=== PATIENT | female | born 1960 | race Caucasian/White ===

== ENCOUNTER 2019-08-22 18:33 | Emergency (ER) | payer MEDICARE ==
[~2019-08-22] VITALS: Ht 157.5 cm; Wt 85.3 kg
[~2019-08-22 18:33] MED LIST: ATIVAN1 MG PO; COUMADIN1 MG PO; DEMEROL PO; PHENERGAN PO; SOMA250 MG PO; TOPROL XL50 MG PO
[2019-08-22 19:15] LABS: BASOPHILS # (AUTO) 0.1 (0.0-0.1); BASOPHILS % 0.7 % (0.0-1.0); EOSINOPHILS # (AUTO) 0.2 (0.0-0.4); EOSINOPHILS % 2.4 % (0.0-6.0); HEMATOCRIT 39.5 % (34.2-44.1); HEMOGLOBIN 13.5 g/dL (12.0-16.0); LYMPHOCYTES # (AUTO) 1.6 (1.0-3.2); LYMPHOCYTES % 23.1 % (18.0-39.1); MEAN CORPUSCULAR HEMOGLOBIN 31.7 pg (28-32); MEAN CORPUSCULAR HGB CONC 34.2 g/dL (31-35); MEAN CORPUSCULAR VOLUME 92.7 fL (81-99); MONOCYTES # (AUTO) 0.4 (0.2-0.8); MONOCYTES % 6.3 % (4.4-11.3); NEUTROPHILS # (AUTO) 4.6 (2.1-6.9); NEUTROPHILS % 67.4 % (38.7-80.0); PLATELET COUNT 251 x10e3/uL (140-360); RED BLOOD COUNT 4.26 x10e6/uL (3.6-5.1); RED CELL DISTRIBUTION WIDTH 12.6 % (11.7-14.4)
[2019-08-22 19:21] LABS: INR 1.46; PROTHROMBIN TIME 18.3 seconds (11.9-14.5)
[2019-08-22 19:22] LABS: PARTIAL THROMBOPLASTIN TIME 31.6 seconds (23.8-35.5)
[2019-08-22] MEDS ORDERED: LORAZEPAM 1 MG TAB PO NR (19:30)
[2019-08-22 21:12] VITALS: BP 129/61
== END 2019-08-22 21:16 | disposition home or self-care (01) ==
LOC: ER 18:33
DX: M79.661 Pain in right lower leg (principal); S86.111A Strain of other muscle(s) and tendon(s) of posterior muscle group at lower leg level, right leg, initial encounter; F41.9 Anxiety disorder, unspecified; M54.9 Dorsalgia, unspecified; G89.29 Other chronic pain; Z85.118 Personal history of other malignant neoplasm of bronchus and lung
CPT/HCPCS: 36415; 85025; 85610; 85730; 93971; 99283

== ENCOUNTER 2020-05-10 13:40 | Emergency (ER) | payer MEDICARE ==
[~2020-05-10] VITALS: Ht 157.5 cm; Wt 85.3 kg
--- NOTE | 2020-05-10 15:19 | Diagnostic Imaging Report ---
EXAMINATION: CHEST SINGLE (PORTABLE) INDICATION: Chest pain COMPARISON: Report of chest CT of 04/15/2017 (images not available for comparison). FINDINGS: LINES/TUBES:None LUNGS:The lungs are well-inflated. No focal consolidation or pulmonary edema. Nodules seen on prior chest CT are beyond the resolution of this radiograph. PLEURA:No pleural effusion or pneumothorax. MEDIASTINUM:The cardiomediastinal silhouette appears normal in size and shape. BONES/SOFT TISSUES:No acute osseous injury. Partially visualized cervical spine fusion hardware. ABDOMEN:No free air under the diaphragm. IMPRESSION: No focal pneumonia or pulmonary edema. Signed by: Yojana Gonzalez MD on 05/10/2020 3:15 PM
--- OUTSIDE RECORDS SUMMARY | 2020-05-10 15:22 | XMS REPORT | Continuity of Care Document ---
Author Author [facility] t Organization [facility] Address [address] [place] [address] Phone Unavailable Care Team Providers Care Statistician Applied Name Role Phone SHERRELL MARK MD PCP Jimmie WESTON Attphys Unavailable Mihai SIMPSON Attphys Unavailable Payers Payer Name Policy Type Policy Number Effective Date Expiration Date [place] Medicare Advantage [id number] 2018 00:00:00 [facility] [employer] Medicare Replacement [id number] 2016 00:00:00 [facility] Problems Condition Name Condition Details Condition Category Status Onset Date Resolution Date Last Treatment Date Treating Clinician Comments Source Chest pain Chest pain Problem Active [facility] Allergies, Adverse Reactions, Alerts Allergy Name Allergy Type Status Severity Reaction(s) Onset Date Inacti ve Date Treating Clinician Comments Source Tramadol Allergy to Substance Active 2017-04-15 00:00:00 [facility] Ketorolac Allergy to Substance Active 2017-04-15 00:00:00 [facility] ZOFRAN Allergy to Substance Active Mild 2016-03-14 00:00:00 [facility] Morphine Allergy to Substance Active 2009-11-06 00:00:00 [facility] Codeine Allergy to Substance Active 2009-11-06 00:00:00 [facility] Pentazocine Allergy to Substance Active 2009-11-06 00:00:00 [facility] Metoclopramide Allergy to Substance Active 2009-11-06 00:00 :00 [facility] NSAIDS (Non-Steroidal Anti-Inflamma Allergy to Substance Active 2009-11-02 00:00:00 [facility] Ondansetron Allergy to Substance Active 2009-11-02 00:00:00 [facility] Medications Ordered Medication Name Filled Medication Name Start Date Stop Da te Current Medication? Ordering Clinician Indication Dosage Frequency Signature (SIG) Comments Components Source Carisoprodol (Soma) 250 Mg Tab Carisoprodol (Soma) 250 Mg Tab Yes 1 Twice A Day as needed for Pain [facility] Demerol Demerol Yes 50 Twice A Day [facility] Lorazepam (Ativan) 1 Mg Tablet Lorazepam (Ativan) 1 Mg Tablet Yes 1 Twice A Day as needed for Anxiety [facility] Metoprolol Succinate (Toprol Xl) 50 Mg Tab.er.24h Meto prolol Succinate (Toprol Xl) 50 Mg Tab.er.24h Yes 100 Daily [facility] Phenergan Phenergan Yes 25 Twice A Day [facility] Warfarin Sodium (Coumadin) 1 Mg Tablet Warfarin Sodium (Coumadin ) 1 Mg Tablet Yes 3 Today At 5:00PM [facility] Procedures This patient has no known procedures. Encounters Start Date/Time End Date/Time Encounter Type Admission Type [facility] Care Department Encounter ID Source 2019-10-18 13:41:00 2019-10-18 15:06:00 Departed Emergency Room 1 MONISHA SIMPSON [facility] [id number] [facility] 2019-08-22 18:33:00 2019-08-22 21:16:00 Departed Emergency Room [facility] [id number] [facility] Results Test Description Test Time Test Comments Results Result Comments Source CHEST SINGLE (PORTABLE) 2020-05-10 15:14:00 [place] [address] Patient Name: LEIF DONOVAN MR #: [id number] : 1960 Age/Sex: 59/F Req #: [id number] Adm Physician: Ordered by: CHINMAY WESTON MD Report #: [id number] Location: ER Room/Bed: Procedure: [id number] DX/CHEST SINGLE (PORTABLE) Exam Date: 05/10/20 Exam Time: 1450 REPORT STATUS: Signed EXAMINATION: CHEST SINGLE (PORTABLE) INDICATION: Chest pain COMPARISON: Report of chest CT of 04/15/2017 (images not available for comparison). FINDINGS: LINES/TUBES:None LUNGS:The lungs are well-inflated. No focal consolidation or pulmonary edema. Nodules seen on prior chest CT are beyond the resolution of this radiograph. PLEURA:No pleural effusion or pneumothorax. MEDIASTINUM:The cardiomediastinal silhouette appears normal in size and shape. BONES/SOFT TISSUES:No acute osseous injury. Partially visualized cervical spine fusion hardware. ABDOMEN:No free air under the diaphragm. IMPRESSION: No focal pneumonia or pulmonary edema. Signed by: Elaine Tejeda MD on 05/10/2020 3:15 PM Dictated By: ELAINE TEJEDA MD 14 Transcribed By: HILLARY on 05/10/201514 COPY TO: CHINMAY WESTON MD [address] RT - [facility] 2019-10-18 14:27:00 [place] [address] Patient Name: LEIF DONOVAN MR #: [id number] : 1960 Age/Sex: 58/F Req #: [id number] Adm Physician: Ordered by: MONISHA SIMPSON MD Report #: [id number] Location: [facility] Room/Bed: Procedure: [id number] [facility]/FOOT 2VIEW RT - [facility] Exam Date: Exam Time: REPORT STATUS: Signed EXAMINATION: FOOT 2VIEW RT - [facility] INDICATION: Trauma COMPARISON: None FINDINGS: Acute minimally displaced fracture of the medial aspect of the fourth proximal phalanx base with intra-articular extension. Subtle cortical irregularity along the medial aspect of the base of the second proximal phalanx. Remote post traumatic versus postoperative deformity of the fifth toe. IMPRESSION: Acute minimally displaced fracture of the medial aspect of the base of the fourth proximal phalanx. Cortical irregularity along the medial aspect of the base of the second proximal phalanx. If the patient has symptoms localizing to this area, this may represent an acute nondisplaced fracture. Signed by: Elaine Tejeda MD on 10/18/2019 2:31 PM Dictated By: ELAINE ETJEDA MD 1431 Transcribed By: HILLARY on 10/18/19 1431 COPY TO: MONISHA SIMPSON MD Prothrombin Time 2019-08-22 19:23:00 Test Item Prothrombin Time (test code = 5902-2) 18.3 11.9-14.5 H [facility] International Ratio 2019-08-22 19:23:00* Test Item Value Reference Range Interpretation Comments Prothromb Time International Ratio (test code = 6301-6) 1.46 Oral Anticoagulant Therapy INR Values:1. Low Intensity Therapy 1.5 - 2.02 . Moderate Intensity Therapy 2.0 - 3.03. High Intensity Therapy(1) 2.5 - 3. 54. High Intensity Therapy(2) 3.0 - 4.05. Panic Value INR > 5.0 [facility] Partial Thromboplast Time 2019-08-22 19:23:00* Test Item Value Reference Range Interpretation Comments Activated Partial Thromboplast Time (test code = 48422-3) 31.6 23.8-35.5 [facility]Prothrombin [id number] 19:23:00* Test Item Value Reference Range Interpretation Comments Prothrombin Time (test code = 5902-2) 18.3 11.9-14.5 H [facility]romb Time International Ratio 2019-08-22 19:23:00* Test Item Value Reference Range Interpretation Comments Prothromb Time International Ratio (test code = 6301-6) 1.46 Oral Anticoagulant Therapy INR Values:1. Low Intensity Therapy 1.5 - 2.02 . Moderate Intensity Therapy 2.0 - 3.03. High Intensity Therapy(1) 2.5 - 3. 54. High Intensity Therapy(2) 3.0 - 4.05. Panic Value INR > 5.0 [facility] Partial Thromboplast Time 2019-08-22 19:23:00* Test Item Value Reference Range Interpretation Comments Activated Partial Thromboplast Time (test code = 38559-3) 31.6 23.8-35.5 [facility] HospitalWhite Blood [id number] 19:16:00* Test Item Value Reference Range Interpretation Comments White Blood Count (test code = 6690-2) 6.80 4.8-10.8 [facility] Blood [id number] 19:16:00* Test Item Value Reference Range Interpretation Comments Red Blood Count (test code = 789-8) 4.26 3.6-5.1 [facility] HospitalHemoglobin2019-11-17 19:16:00* Test Item Value Reference Range Interpretation Comments Hemoglobin (test code = 86009-5) 13.5 12.0-16.0 [facility] HospitalHematocrit2019-11-17 19:16:00* Test Item Value Reference Range Interpretation Comments Hematocrit (test code = 4544-3) 39.5 34.2-44.1 [facility] HospitalMean Corpuscular [id number] 19:16:00* Test Item Value Reference Range Interpretation Comments Mean Corpuscular Volume (test code = 787-2) 92.7 81-99 [facility] HospitalMean Corpuscular Ppubgyuuoy4380-00-08 19:16:00* Test Item Value Reference Range Interpretation Comments Mean Corpuscular Hemoglobin (test code = 785-6) 31.7 28-32 [facility] HospitalMean Corpuscular Hemoglobin Concent 2019-08-22 19:16:00* Test Item Value Reference Range Interpretation Comments Mean Corpuscular Hemoglobin Concent (test code = 786-4) 34.2 31-35 [facility] HospitalRed Cell Distribution [id number] 19:16:00* Test Item Value Reference Range Interpretation Comments Red Cell Distribution Width (test code = 02627-9) 12.6 11.7 -14.4 [facility] HospitalPlatelet [id number] 19:16:00* Test Item Value Reference Range Interpretation Comments Platelet Count (test code = 777-3) 251 140-360 [facility] HospitalNeutrophils (%) (Auto)2019-08-22 19:16:00 * Test Item Value Reference Range Interpretation Comments Neutrophils (%) (Auto) (test code = 18418-1) 67.4 38.7-80.0 [facility] HospitalLymphocytes (%) (Auto)2019-08-22 19:16:00 * Test Item Value Reference Range Interpretation Comments Lymphocytes (%) (Auto) (test code = 736-9) 23.1 18.0-39.1 [facility] HospitalMonocytes (%) (Auto)2019-08-22 19:16:00* Test Item Value Reference Range Interpretation Comments Monocytes (%) (Auto) (test code = 5905-5) 6.3 4.4-11.3 [facility] HospitalEosinophils (%) (Auto)2019-08-22 19:16:00 * Test Item Value Reference Range Interpretation Comments Eosinophils (%) (Auto) (test code = 713-8) 2.4 0.0-6.0 [facility] HospitalBasophils (%) (Auto)2019-08-22 19:16:00* Test Item Value Reference Range Interpretation Comments Basophils (%) (Auto) (test code = 706-2) 0.7 0.0-1.0 [facility] HospitalIM GRANULOCYTES %2019-08-22 19:16:00* Test Item Value Reference Range Interpretation Comments IM GRANULOCYTES % (test code = IM GRANULOCYTES %) 0.1 0.0- 1.0 [facility] HospitalNeutrophils # (Auto)2019-08-22 19:16:00* Test Item Value Reference Range Interpretation Comments Neutrophils # (Auto) (test code = 751-8) 4.6 2.1-6.9 [facility] HospitalLymphocytes # (Auto)2019-08-22 19:16:00* Test Item Value Reference Range Interpretation Comments Lymphocytes # (Auto) (test code = 19116-5) 1.6 1.0-3.2 [facility] HospitalMonocytes # (Auto)2019-08-22 19:16:00* Test Item Value Reference Range Interpretation Comments Monocytes # (Auto) (test code = 742-7) 0.4 0.2-0.8 [facility] HospitalEosinophils # (Auto)2019-08-22 19:16:00* Test Item Value Reference Range Interpretation Comments Eosinophils # (Auto) (test code = 711-2) 0.2 0.0-0.4 [facility] HospitalBasophils # (Auto)2019-08-22 19:16:00* Test Item Value Reference Range Interpretation Comments Basophils # (Auto) (test code = 704-7) 0.1 0.0-0.1 [facility] HospitalAbsolute Immature Granulocyte (auto 2019-08-22 19:16:00* Test Item Value Reference Range Interpretation Comments Absolute Immature Granulocyte (auto (britni t code = Absolute Immature Granulocyte (auto) 0.01 0-0.1 [facility] HospitalWhite Blood [id number] 19:16:00* Test Item Value Reference Range Interpretation Comments White Blood Count (test code = 6690-2) 6.80 4.8-10.8 [facility] HospitalRed Blood [id number] 19:16:00* Test Item Value Reference Range Interpretation Comments Red Blood Count (test code = 789-8) 4.26 3.6-5.1 [facility] HospitalHemoglobin2019-11-17 19:16:00* Test Item Value Reference Range Interpretation Comments Hemoglobin (test code = 36431-7) 13.5 12.0-16.0 [facility] HospitalHematocrit2019-11-17 19:16:00* Test Item Value Reference Range Interpretation Comments Hematocrit (test code = 4544-3) 39.5 34.2-44.1 [facility] HospitalMean Corpuscular Egefec2782-80-18 19:16:00* Test Item Value Reference Range Interpretation Comments Mean Corpuscular Volume (test code = 787-2) 92.7 81-99 [facility] HospitalMean Corpuscular [id number] 19:16:00* Test Item Value Reference Range Interpretation Comments Mean Corpuscular Hemoglobin (test code = 785-6) 31.7 28-32 [facility] HospitalMean Corpuscular Hemoglobin Concent 2019-08-22 19:16:00* Test Item Value Reference Range Interpretation Comments Mean Corpuscular Hemoglobin Concent (test code = 786-4) 34.2 31-35 [facility] HospitalRed Cell Distribution [id number] 19:16:00* Test Item Value Reference Range Interpretation Comments Red Cell Distribution Width (test code = 11444-3) 12.6 11.7 -14.4 [facility] HospitalPlatelet [id number] 19:16:00* Test Item Value Reference Range Interpretation Comments Platelet Count (test code = 777-3) 251 140-360 [facility] HospitalNeutrophils (%) (Auto)2019-08-22 19:16:00 * Test Item Value Reference Range Interpretation Comments Neutrophils (%) (Auto) (test code = 42810-7) 67.4 38.7-80.0 [facility] HospitalLymphocytes (%) (Auto)2019-08-22 19:16:00 * Test Item Value Reference Range Interpretation Comments Lymphocytes (%) (Auto) (test code = 736-9) 23.1 18.0-39.1 [facility] HospitalMonocytes (%) (Auto)2019-08-22 19:16:00* Test Item Value Reference Range Interpretation Comments Monocytes (%) (Auto) (test code = 5905-5) 6.3 4.4-11.3 [facility] HospitalEosinophils (%) (Auto)2019-08-22 19:16:00 * Test Item Value Reference Range Interpretation Comments Eosinophils (%) (Auto) (test code = 713-8) 2.4 0.0-6.0 [facility] HospitalBasophils (%) (Auto)2019-08-22 19:16:00* Test Item Value Reference Range Interpretation Comments Basophils (%) (Auto) (test code = 706-2) 0.7 0.0-1.0 [facility] HospitalIM GRANULOCYTES %2019-08-22 19:16:00* Test Item Value Reference Range Interpretation Comments IM GRANULOCYTES % (test code = IM GRANULOCYTES %) 0.1 0.0- 1.0 [facility] HospitalNeutrophils # (Auto)2019-08-22 19:16:00* Test Item Value Reference Range Interpretation Comments Neutrophils # (Auto) (test code = 751-8) 4.6 2.1-6.9 [facility] HospitalLymphocytes # (Auto)2019-08-22 19:16:00* Test Item Value Reference Range Interpretation Comments Lymphocytes # (Auto) (test code = 66804-5) 1.6 1.0-3.2 [facility] HospitalMonocytes # (Auto)2019-08-22 19:16:00* Test Item Value Reference Range Interpretation Comments Monocytes # (Auto) (test code = 742-7) 0.4 0.2-0.8 [facility] HospitalEosinophils # (Auto)2019-08-22 19:16:00* Test Item Value Reference Range Interpretation Comments Eosinophils # (Auto) (test code = 711-2) 0.2 0.0-0.4 [facility] HospitalBasophils # (Auto)2019-08-22 19:16:00* Test Item Value Reference Range Interpretation Comments Basophils # (Auto) (test code = 704-7) 0.1 0.0-0.1 [facility] HospitalAbsolute Immature Granulocyte (auto 2019-08-22 19:16:00* Test Item Value Reference Range Interpretation Comments Absolute Immature Granulocyte (auto (britni t code = Absolute Immature Granulocyte (auto) 0.01 0-0.1 [facility]
[2020-05-10] MEDS ORDERED: LORAZEPAM INJ 2 MG/ML VIAL IV ONE (15:30)
[2020-05-10 16:02] LABS: BASOPHILS % 0.5 % (0.0-1.0); EOSINOPHILS # (AUTO) 0.1 (0.0-0.4); EOSINOPHILS % 1.8 % (0.0-6.0); HEMATOCRIT 41.1 % (34.2-44.1); HEMOGLOBIN 13.7 g/dL (12.0-16.0); LYMPHOCYTES # (AUTO) 1.4 (1.0-3.2); LYMPHOCYTES % 23.4 % (18.0-39.1); MEAN CORPUSCULAR HEMOGLOBIN 30.2 pg (28-32); MEAN CORPUSCULAR HGB CONC 33.3 g/dL (31-35); MEAN CORPUSCULAR VOLUME 90.5 fL (81-99); MONOCYTES # (AUTO) 0.4 (0.2-0.8); NEUTROPHILS # (AUTO) 4.1 (2.1-6.9); NEUTROPHILS % 68.1 % (38.7-80.0); PLATELET COUNT 228 x10e3/uL (140-360); RED BLOOD COUNT 4.54 x10e6/uL (3.6-5.1); RED CELL DISTRIBUTION WIDTH 12.8 % (11.7-14.4)
[2020-05-10 16:12] LABS: INR 2.29; PARTIAL THROMBOPLASTIN TIME 40.1 seconds (23.8-35.5); PROTHROMBIN TIME 26.7 seconds (11.9-14.5)
[2020-05-10 16:22] LABS: ALANINE AMINOTRANSFERASE 31 IU/L (0-55); ALBUMIN 3.9 g/dL (3.5-5.0); ALKALINE PHOSPHATASE 68 IU/L (40-150); ANION GAP 13.3 mmol/L (8-16); BLOOD UREA NITROGEN 9 mg/dL (7-26); BUN/CREATININE RATIO 10 (6-25); CALCIUM 9.1 mg/dL (8.4-10.2); CARBON DIOXIDE 24 mmol/L (22-29); CHLORIDE 107 mmol/L (98-107); CREATINE KINASE 129 IU/L (29-168); EST GLOMERULAR FILTRATION RATE > 60 ML/MIN (60-); GLUCOSE 97 mg/dL (74-118); MAGNESIUM 1.9 MG/DL (1.3-2.1); POTASSIUM 3.3 mmol/L (3.5-5.1); SODIUM 141 mmol/L (136-145)
[2020-05-10 16:41] LABS: THYROID STIMULATING HORMONE 3.941 uIU/mL (0.350-4.940)
--- NOTE | 2020-05-10 16:47 | Emergency Department Note ---
History of Present Illnes History of Present Illness Chief Complaint: Chest Pain History of Present Illness This is a 59 year old female CHEST PAIN WITH PVC AND PAIN WITH PVC'S. 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 Any updates have been documented here. Past Medical History Recent Fever: No Clinical Suspicion of Infectio: No New/Unexplained Change in Ment: No Past Medical History: Cancer, Anxiety, DVT/PE, Chronic Back Pain Other Medical History: IBS CHRONIC CERVICAL SPINE PAIN LUNG CANCER PE X2 MITRAL VALVE PROLAPSE CHROHNS DISEASE PSORIASIS Past Surgical History: Cholecysctectomy, Appendectomy, Other Surgery: BLADDER SUSPENSION THORACOTOMY LT LUNG ORTHO ON BILATERAL ARMS CERVICAL REPAIR X 2 Social History Smoking Cessation: Never Smoker Alcohol Use: None Any Illegal Drug Use: No TB Exposure/Symptoms: No Physically hurt or threatened: No Family History Family history of heart diseas: No Other Last Tetanus: UTD Review of Systems Review of Systems Constitutional: Reports no symptoms EENTM: Reports no symptoms Cardiovascular: Reports as per HPI Respiratory: Reports no symptoms Gastrointestinal: Reports no symptoms Genitourinary: Reports no symptoms Musculoskeletal: Reports no symptoms Integumentary: Reports no symptoms Neurological: Reports no symptoms Psychological: Reports no symptoms Endocrine: Reports no symptoms Hematological/Lymphatic: Reports no symptoms Physical Exam Related Data Allergies: Coded Allergies: NSAIDS (Non-Steroidal Anti-Inflamma (Verified Allergy, Unknown, 11/02/09) codeine (Verified Allergy, Unknown, 11/06/09) ketorolac (Verified Allergy, Unknown, 04/15/17) metoclopramide (Verified Allergy, Unknown, 11/06/09) morphine (Verified Allergy, Unknown, 11/06/09) ondansetron (Verified Allergy, Unknown, 11/02/09) pentazocine (Verified Allergy, Unknown, 11/06/09) tramadol (Verified Allergy, Unknown, 04/15/17) Uncoded Allergies: ZOFRAN (Allergy, Mild, 03/14/16) Triage Vital Signs Vital Signs Date Time Temp Pulse Resp B/P (MAP) Pulse Ox O2 Delivery O2 Flow Rate FiO2 05/10/20 13:42 97.4 120 20 147/62 99 Room Air Vital signs reviewed: Yes Physical Exam CONSTITUTIONAL Constitutional: Present well-developed, Present well-nourished HENT HENT: Present normocephalic, Present atraumatic, Present oropharynx clear/storm st, Present nose normal HENT L/R: Present left ext ear normal, Present right ext ear normal EYES Eyes: Reports PERRL, Reports conjunctivae normal NECK Neck: Present ROM normal PULMONARY Pulmonary: Present effort normal, Present breath sounds normal CARDIOVASCULAR Cardiovascular: Present regular rhythm, Present heart sounds normal, Present capillary refill normal, Present normal rate, Present other (SOME REPRODUCIBLE TENDERNESS ANTERIOR CW) GASTROINTESTINAL Abdominal: Present soft, Present nontender, Present bowel sounds normal GENITOURINARY Genitourinary: Present exam deferred SKIN Skin: Present warm, Present dry MUSCULOSKELETAL Musculoskeletal: Present ROM normal NEUROLOGICAL Neurological: Present alert, Present oriented x 3, Present no gross motor or sensory deficits PSYCHOLOGICAL Psychological: Present mood/affect normal, Present judgement normal Results Laboratory Result Diagram: 05/10/20 1502 05/10/20 1502 Laboratory Laboratory Tests Test 05/10/20 15:02 White Blood Count 5.98 x10e3/uL (4.8-10.8) Red Blood Count 4.54 x10e6/uL (3.6-5.1) Hemoglobin 13.7 g/dL (12.0-16.0) Hematocrit 41.1 % (34.2-44.1) Mean Corpuscular Volume 90.5 fL (81-99) Mean Corpuscular Hemoglobin 30.2 pg (28-32) Mean Corpuscular Hemoglobin Concent 33.3 g/dL (31-35) Red Cell Distribution Width 12.8 % (11.7-14.4) Platelet Count 228 x10e3/uL (140-360) Neutrophils (%) (Auto) 68.1 % (38.7-80.0) Lymphocytes (%) (Auto) 23.4 % (18.0-39.1) Monocytes (%) (Auto) 6.0 % (4.4-11.3) Eosinophils (%) (Auto) 1.8 % (0.0-6.0) Basophils (%) (Auto) 0.5 % (0.0-1.0) Neutrophils # (Auto) 4.1 (2.1-6.9) Lymphocytes # (Auto) 1.4 (1.0-3.2) Monocytes # (Auto) 0.4 (0.2-0.8) Eosinophils # (Auto) 0.1 (0.0-0.4) Basophils # (Auto) 0.0 (0.0-0.1) Absolute Immature Granulocyte (auto 0.01 x10e3/uL (0-0.1) Prothrombin Time 26.7 seconds (11.9-14.5) Prothromb Time International Ratio 2.29 Activated Partial Thromboplast Time 40.1 seconds (23.8-35.5) D-Dimer Quantitative (PE/DVT) 0.14 ug/mLFEU (0.00-0.45) Sodium Level 141 mmol/L (136-145) Potassium Level 3.3 mmol/L (3.5-5.1) Chloride Level 107 mmol/L (98-107) Carbon Dioxide Level 24 mmol/L (22-29) Anion Gap 13.3 mmol/L (8-16) Blood Urea Nitrogen 9 mg/dL (7-26) Creatinine 0.90 mg/dL (0.57-1.11) Estimat Glomerular Filtration Rate > 60 ML/MIN (60-) BUN/Creatinine Ratio 10 (6-25) Glucose Level 97 mg/dL (74-118) Calcium Level 9.1 mg/dL (8.4-10.2) Magnesium Level 1.9 MG/DL (1.3-2.1) Total Bilirubin 0.4 mg/dL (0.2-1.2) Aspartate Amino Transf (AST/SGOT) 30 IU/L (5-34) Alanine Aminotransferase (ALT/SGPT) 31 IU/L (0-55) Alkaline Phosphatase 68 IU/L (40-150) Creatine Kinase 129 IU/L (29-168) B-Type Natriuretic Peptide 20.0 pg/mL (0-100) Total Protein 7.7 g/dL (6.5-8.1) Albumin 3.9 g/dL (3.5-5.0) Globulin 3.8 g/dL (2.3-3.5) Albumin/Globulin Ratio 1.0 (0.8-2.0) Lab results reviewed: Yes Imaging Imaging results reviewed: Yes Procedures 12 Lead ECG Interpretation ECG Interpretation : ECG: ECG 1 [employer] Consultant: Interpreted by ED physician Date: May 10, 2020 Time: 13:51 Rhythm: sinus rhythm Rate: normal (81) QRS axis: left ST segments normal: Yes T waves normal: Yes Clinical Impression: abnormal ECG Assessment & Plan Medical Decision Making MDM CBC, CHEM, ECG, CARDIACS, D-DIMER, CXR - R/O STEMI/NSTEMI, PULM EMBOLISM, PNEUMONIA Reassessment Reassessment ATYPICAL CP - DC HOME, F/U PCP AND CARDIOLOGY, RTED PRN Assessment & Plan Final Impression: (1) Atypical chest pain Depart Disposition: HOME, SELF-CARE Last Vital Signs Date Time Temp Pulse Resp B/P (MAP) Pulse Ox O2 Delivery O2 Flow Rate FiO2 05/10/20 15:50 65 14 134/92 99 Room Air 05/10/20 13:42 97.4 Home Meds Reported Medications Lorazepam (ATIVAN) 1 Mg Tablet, 1 TAB PO BID PRN for ANXIETY 04/15/17 Warfarin Sodium (COUMADIN) 1 Mg Tablet, 3 MG PO 1700, #7 TAB 04/15/17 Metoprolol Succinate (TOPROL XL) 50 Mg Tab.er.24h, 100 MG PO DAILY, #30 TAB 04/15/17 Carisoprodol (SOMA) 250 Mg Tab, 1 TAB PO BID PRN for PAIN 04/15/17 [Demerol] No Conflict Check, 50 MG PO BID 04/15/17 [Phenergan] No Conflict Check, 25 MG PO BID 04/15/17 Medications in the ED Lorazepam 1 mg ONCE ONCE IV Last administered on 05/10/20at 15:49; Admin Dose 1 MG; Start 05/10/20 at 15:30; Stop 05/10/20 at 15:40; Status DC CHINMAY WESTON MD May 10, 2020 16:47
[2020-05-10 16:57] VITALS: BP 112/79
== END 2020-05-10 17:54 | disposition home or self-care (01) ==
LOC: ER 15:20
DX: R07.89 Other chest pain (principal); R94.31 Abnormal electrocardiogram [ECG] [EKG]; R11.0 Nausea; F41.9 Anxiety disorder, unspecified; M54.9 Dorsalgia, unspecified; G89.29 Other chronic pain; Z85.118 Personal history of other malignant neoplasm of bronchus and lung; Z86.718 Personal history of other venous thrombosis and embolism
CPT/HCPCS: 36415; 71045; 80053; 82550; 82553; 83735; 83880; 84443; 84484; 85025; 85379; 85610; 85730; 93005; 99284; J2060

== ENCOUNTER → 2020-06-22 | Outpatient (CLI) | payer MEDICARE ==
[~2020-06-22] MED LIST changes: +IOPAMIDOL 370 MG/ML 200 ML INFUS..BTL INJ ONE; +SODIUM CHLORIDE 0.9% 50ML 50 ML ONE
[2020-06-22 15:26] LABS: BLOOD UREA NITROGEN 12 mg/dL (7-26); BUN/CREATININE RATIO 14 (6-25); CREATININE, SERUM 0.85 mg/dL (0.57-1.11); EST GLOMERULAR FILTRATION RATE > 60 ML/MIN (60-)
--- NOTE | 2020-06-22 16:46 | Diagnostic Imaging Report ---
EXAM: CT Chest, Abdomen and Pelvis WITH intravenous contrast INDICATION: Pulmonary embolism, Crohn disease COMPARISON: Chest radiograph 05/10/2020, chest CT 04/15/2017 TECHNIQUE: The chest, abdomen and pelvis were scanned utilizing a multidetector helical scanner from the thoracic inlet to the pubic symphysis following administration of IV contrast. Coronal and sagittal reformations were obtained. Chest CT was performed using PE protocol. Abdomen and pelvis images were performed during portal venous phase. IV CONTRAST: 100cc Isovue 370 ORAL CONTRAST: Water COMPLICATIONS: None RADIATION DOSE: Total DLP: 1120 mGy*cm Dose modulation, iterative reconstruction, and/or weight based adjustment of the mA/kV was utilized to reduce the radiation dose to as low as reasonably achievable. FINDINGS: PULMONARY ARTERIES: No pulmonary embolism to the segmental level. Subsegmental pulmonary arteries are not well opacified. The main pulmonary artery measures up to 2.4 cm in diameter, within normal limits. No right heart strain. LUNGS AND AIRWAYS: The central airways are patent. Stable postoperative scarring at the left lower lobe. No new focal consolidation or pulmonary edema. PLEURA: The pleural spaces are clear. HEART AND MEDIASTINUM: The thyroid gland is normal. No mediastinal, hilar or axillary lymphadenopathy. The heart is normal in size.. There is no pericardial effusion. HEPATOBILIARY: Diffuse hepatic steatosis. No focal liver lesion. No biliary ductal dilation. Status post cholecystectomy. SPLEEN: No splenomegaly. PANCREAS: No focal masses or ductal dilatation. ADRENALS: No adrenal nodules. KIDNEYS/URETERS: No hydronephrosis, renal calculi or solid renal mass lesions. Bilateral simple renal cysts. PELVIC ORGANS/BLADDER: Unremarkable. PERITONEUM / RETROPERITONEUM: No free air or fluid. LYMPH NODES: No lymphadenopathy. VESSELS: Mild scattered atherosclerotic calcifications of the nonaneurysmal abdominal aorta and major branches. IVC filter in place. GI TRACT: No abnormal bowel thickening. No bowel obstruction. Mild distention of the rectum which is filled with stool. BONES AND SOFT TISSUES: Unremarkable. IMPRESSION: No pulmonary embolism. No focal pneumonia or pulmonary edema. No bowel wall thickening, bowel obstruction, or other evidence of active Crohn disease flare. Diffuse hepatic steatosis. Mild distention of the stool-filled rectum can be seen in the setting of constipation. Signed by: Yojana Gonzalez MD on 06/22/2020 4:42 PM
== END ==
LOC: CT 13:37
PROVIDERS: ATTEND Internal Medicine
DX: Z86.711 Personal history of pulmonary embolism (principal); K50.90 Crohn's disease, unspecified, without complications; K76.0 Fatty (change of) liver, not elsewhere classified
CPT/HCPCS: 36415; 71260; 74177; 82565; 84520; Q9967

== ENCOUNTER 2021-07-13 13:13 | Emergency (ER) | payer MEDICARE, OTHER ==
[~2021-07-13] VITALS: Ht 157.5 cm; Wt 74.4 kg
[~2021-07-13 13:13] MED LIST changes: -IOPAMIDOL 370 MG/ML 200 ML INFUS..BTL INJ ONE; -SODIUM CHLORIDE 0.9% 50ML 50 ML ONE
== END 2021-07-13 14:49 | disposition home or self-care (01) ==
LOC: FSED 13:20
DX: M25.561 Pain in right knee (principal); X50.1XXA Overexertion from prolonged static or awkward postures, initial encounter; Y92.89 Other specified places as the place of occurrence of the external cause; M54.2 Cervicalgia; F41.9 Anxiety disorder, unspecified; I34.1 Nonrheumatic mitral (valve) prolapse; G89.29 Other chronic pain; Z79.01 Long term (current) use of anticoagulants; Z85.118 Personal history of other malignant neoplasm of bronchus and lung; Z86.711 Personal history of pulmonary embolism
CPT/HCPCS: 99283

== ENCOUNTER → 2021-12-26 | Outpatient (CLI) | payer MEDICARE | LOC: MAMMO 12:26 | DX: Z12.31 Encounter for screening mammogram for malignant neoplasm of breast (principal); M85.88 Other specified disorders of bone density and structure, other site | CPT/HCPCS: 77067; 77080 ==